=== PATIENT | male | born 1940 | race Two or more races ===

== ENCOUNTER 2020-11-11 07:07 | Day surgery (SDC) | payer OTHER ==
[2020-12-08] MEDS ORDERED: SIMV PO (12:33)
[2020-12-08] MEDS ORDERED: ATENOLOL PO (12:34)
[2020-12-08] MEDS ORDERED: LOTREL PO (12:35)
[2020-12-08] MEDS ORDERED: CARDURA PO (12:36)
[2020-12-08] MEDS ORDERED: SYNTHROID88 MCG PO (12:36)
== END 2020-11-11 13:15 | disposition home or self-care (01) ==
LOC: CIR.AMB 07:07 → EDBD 07:07 → CIR.AMB 13:15 → EDBD 14:45
PROVIDERS: ATTEND Surgery
DX: K62.89 Other specified diseases of anus and rectum (principal); Z20.822 Contact with and (suspected) exposure to COVID-19

== ENCOUNTER 2020-12-11 10:20 | Day surgery (SDC) | payer OTHER ==
[~2020-12-11 10:20] MED LIST: ATENOLOL PO; CARDURA PO; LOTREL PO; SIMV PO; SYNTHROID88 MCG PO
[2020-12-11] MEDS ORDERED: DICLOFENAC SODI75 MG PO (11:28)
[2020-12-11] MEDS ORDERED: PERCOCET 5-3251 EACH PO (11:28)
[2020-12-11] MEDS ORDERED: PROTONIX40 MG PO (11:29)
== END 2020-12-11 15:00 | disposition home or self-care (01) ==
LOC: CIR.AMB 10:20
PROVIDERS: ATTEND Surgery
DX: C20 Malignant neoplasm of rectum (principal); C79.89 Secondary malignant neoplasm of other specified sites